=== PATIENT | male | born 1970 | race Caucasian/White ===

== ENCOUNTER 2025-06-17 19:40 | Emergency (ER) | payer OTHER, SELFPAY ==
[2025-06-17 19:42] VITALS: BP 159/97
--- NOTE | 2025-06-17 21:39 | ED.GENMED ---
History of Present Illness
General
Chief Complaint: Skin Problem
Source: patient and spouse
Exam Limitations: none
Time Seen by Provider: 06/17/25 21:31
Nursing documentation reviewed up to this point in time: agreed with
History of Present Illness
History of Present Illness:
54-year-old male limited past medical history painful swelling right posterior leg Works as a mobile mechanic
Past History
Past History
ED Past Medical History: None
Social History
Tobacco: Smoker
Alcohol: None
Drug: None
Personal:
Living: with family
Employment: Employed
Review of Systems
Review of Systems
All Other Systems: Not applicable
Constitutional: Denies fever
Skin: Reports other (Tender swelling)
Phy Exam
Physical Exam
Physical Exam:
Physical Exam
General: no apparent distress, not acutely ill
Neck: No jaundice
Lungs: no acute respiratory distress. clear bilaterally
Neuro: alert and oriented. no focal neurological deficits
Skin: no rash
Psychiatric: well kept. interactive and cooperative
Extremities: 5 cm cellulitic area with a 2 cm abscess right posterior thigh
Course
Orders/Labs/Results
Orders:
Orders
06/17/25 22:02
Amoxicillin 875 mg/Clav 125 mg [Augmentin 875 mg/125 mg] 1 tablet PO NOW STA
06/17/25 22:03
Wound Dressing- Treatment ONCE
Location of Wound: leg
06/17/25 22:18
Complete Blood Count/With Diff Urgent
Comprehensive Metabolic Panel Urgent
Hemoglobin A1c [Glycohemoglobin (HgbA1c)] Urgent
06/17/25 23:01
METFORMIN HCl [Glucophage] 500 mg PO NOW STA
Abnormal Lab Results
06/17/25 06/17/25
21:43 22:18
Absolute Neuts (auto) 6.7 H 10^3/uL
(1.4-6.5)
Absolute Monos (auto) 0.8 H 10^3/uL
(0.1-0.6)
Sodium 130 L mmol/L
(135-145)
BUN 7 L mg/dl
(9-20)
Creatinine 0.5 L mg/dL
(0.7-1.3)
Glucose 304 H mg/dl
(70-99)
POC Glucose 289 H mg/dl
(70-99)
06/17/25 22:18
06/17/25 22:18
Vital Signs
Initial and Last Documented VS:
Initial Vital Signs
Temp Pulse Resp BP Pulse Ox
98.2 F 96 20 159/97 97
06/17/25 19:42 06/17/25 19:42 06/17/25 19:42 06/17/25 19:42 06/17/25 19:42
Last Documented Vital Signs
Temp Pulse Resp BP Pulse Ox
98.2 F 96 20 159/97 97
06/17/25 19:42 06/17/25 19:42 06/17/25 19:42 06/17/25 19:42 06/17/25 21:40
Procedures
Incision/Drainage/Joint Aspiration
Right Upper Posterior Leg:
Anethesia: 1% Lidocaine with Epi
Preparation: cleaned with Betadine
Type of procedure: drain
Nature of site: abscess
Description of abscess: greater than 3cm
Loculations broken up: Yes
How much fluid was obtained?: large amount
Fluid description: purulent
Treatment: packed with gauze and antibiotics started
*Pulse Oximetry
SaO2: 97
Oxygen Mode of Delivery: Room air
Patient hypoxic: no
*Critical Care Note
Total Time (30-74mins, 75-104mins- exclusive of procedures): Not Applicable
Update Note
Update Note:
Update Accu-Chek noted not known to be diabetic will check labs and A1c
11 PM update labs are noted will start on metformin, Augmentin, PCP follow-up ER if worsening symptoms
ED Attending Note
-
Portions of this chart may have been created with voice recognition software.� Occasional wrong word or��sound alike� substitutions may have occurred due to the inherent limitations of voice recognition software.
Discharge Plan
Departure
Patient Disposition: Home (Routine Discharge)
Date of Disposition: 06/17/25
Time of Disposition: 23:02
Patient with high blood pressure during this ER visit?: No
Condition: Good
Discharge Problem:
Cellulitis, Abscess, Diabetes
Instructions: Carb counting for adults with diabetes, Cellulitis (Skin Infection), Adult (DC), High blood sugar in adults - ED (DC), Skin Abscess
Prescriptions:
New
amoxicillin-pot clavulanate 875-125 mg tablet
1 tab PO BID Qty: 20 0RF
metformin 500 mg tablet
500 mg PO BID Qty: 90 0RF
Referrals:
Brittany Willams, DO [Family Provider] - Next open appointment
Activity Restrictions/Additional Instructions:
Follow-up with your primary care provider, remove packing from your leg in 2 days
Return to the ER for worsening symptoms or any other concerns
Interventions
Interventions:
*General Assessment Last Done: 06/17/25 19:42
*Neglect/Abuse Screening Last Done: 06/17/25 20:06
*ED COVID-19 Vaccine History Last Done: 06/17/25 20:06
*ED Influenza Vaccine History Last Done: 06/17/25 20:06
[facility] Fall Risk Assessment Tool Last Done: 06/17/25 19:59
*Risk Screen - Suicide (C-SSRS) Last Done: 06/17/25 20:06
ED-Skin Assessment Last Done: 12/18/25 19:59
Discharge Date and Time
Print Language: JAPANESE
[2025-06-17 21:45] LABS: Glucose - Point of Care 289 mg/dl (70-99)
[2025-06-17] MEDS: AUGMENTIN 875 MG/125 MG 1 TABLET PO (22:12)
[2025-06-17 22:24] LABS: Hematocrit 43.1 % (39.0-52.0); Hemoglobin 15.7 g/dL (13.0-18.0); Mean Corp Hgb Conc. 36.4 g/dL (33.0-37.0); Mean Corpuscular Volume 80.6 fL (80.0-94.0); Nucleated Red Blood Cells % 0 % (-); Platelet Count 312 10^3/uL (130-400); Red Cell Dist. Width 12.1 % (11.5-14.5)
[2025-06-17 22:50] LABS: ALT (SGPT) 22 U/L (0-50); AST (SGOT) 21 U/L (17-59); Albumin 4.0 g/dl (3.5-5.0); Alkaline Phosphatase 75 U/L (38-126); Blood Urea Nitrogen 7 mg/dl (9-20); Calcium 8.6 mg/dl (8.4-10.2); Carbon Dioxide 24 mmol/L (22-30); Chloride 98 mmol/L (98-107); Glucose 304 mg/dl (70-99); Potassium 3.9 mmol/L (3.5-5.1); Sodium 130 mmol/L (135-145); Total Protein 7.9 g/dl (6.3-8.2); eGFR > 60.00
[2025-06-17 23:28] VITALS: BP 117/67
[2025-06-17] MEDS: GLUCOPHAGE 500 MG PO (23:33)
[2025-06-18 09:31] LABS: Glycohemoglobin (HgbA1c) 11.5 % (4.0-5.9)
== END 2025-06-17 23:37 | disposition home or self-care (01) ==
LOC: EMR 19:40
PROVIDERS: EMERGENCY PHYSICIAN Emergency Medicine; FAMILY PHYSICIAN Family Medicine
DX: L02.415 Cutaneous abscess of right lower limb (principal); L03.115 Cellulitis of right lower limb; F17.200 Nicotine dependence, unspecified, uncomplicated; E11.9 Type 2 diabetes mellitus without complications
CPT/HCPCS: 10060; 99283; 80053; 82962; 83036; 85025